=== PATIENT | male | born 1990 | race Caucasian/White ===

== ENCOUNTER 2018-07-07 12:27 | Observation (INO) | payer OTHER, SELFPAY ==
[2018-07-07 12:28] VITALS: BP 134/86; PULSE 84; RESP 17; TEMP 36.5; O2SAT 99; BMI 33.9
[2018-07-07] MEDS: Ketorolac 15 MG/ML Vial IV (13:17)
[2018-07-07] MEDS: Ondansetron 4 MG/2 ML Vial IV (13:17)
[2018-07-07] MEDS: Morphine 4 MG/ML Syringe IV (13:17)
--- NOTE | 2018-07-07 13:43 | MRI_ITS ---
STUDY: MRI LUMBAR SPINE WITH AND WITHOUT CONTRAST REASON FOR EXAM: Male, 28 years old. Low back pain.? Abscess/discitis. TECHNIQUE: Standardized fat and water weighted pulse sequences were obtained in the sagittal and axial planes. 20 IV Dotarem was administered for the contrast portion of the examination. COMPARISON: None FINDINGS: T10-T11: (Sagittal only). Normal endplates. Normal disc height, hydration and morphology. No ventral extradural defect. Normal central canal and the visualized portions of the bilateral intervertebral neural foramina. T11-T12: (Sagittal only). Normal endplates. Normal disc height, hydration and morphology. No ventral extradural defect. Normal central canal and bilateral intervertebral neural foramina. T12-L1: (Sagittal only). Normal endplates. Normal disc height, hydration and morphology. No ventral extradural defect. Normal central canal and bilateral intervertebral neural foramina. Normal lumbar lordosis. There is no substantial scoliosis. Normal conus medullaris that terminates at the lower T12 vertebral body level. L1-2: Normal endplates. Normal disc height, hydration and morphology. Normal bilateral facet joints. Normal central canal and bilateral lateral recesses. Normal bilateral intervertebral neural foramina. L2-3: Normal endplates. Normal disc height, hydration and morphology. Mild central canal stenosis secondary to prominent dorsal epidural lipomatosis. The AP canal diameter is 11 mm but the transverse canal diameter is 18.4 mm wide. Normal bilateral lateral recesses. Normal facet joints. Normal bilateral intervertebral neural foramina. L3-4: Normal endplates. Mild disc space height narrowing with moderate loss of disc hydration. Prominent posterior midline disc protrusion. Moderately pronounced central canal stenosis with an AP canal diameter of 6.4 mm. Mild dorsal epidural lipomatosis. Normal bilateral lateral recesses. Normal facet joints. Normal bilateral intervertebral neural foramina. L4-5: Normal endplates. Normal disc height, hydration and morphology. No ventral epidural defect. Mild central canal stenosis with an AP canal diameter of 10 mm. Normal bilateral lateral recesses. Normal facet joints. Normal bilateral intervertebral neural foramina. L5-S1: Normal endplates. Normal disc height, hydration and morphology. Moderate central canal stenosis with an AP canal diameter of 6.4 mm. This is due to developmentally short pedicles and tapering termination of the thecal sac. Normal bilateral lateral recesses. Normal facet joints. Normal bilateral intervertebral neural foramina. Normal visualized sacral ala. Normal visualized paraspinous soft tissue structures. No abnormal enhancing lesions intradurally and extradurally. MRI/Spine Lumbar W/WO Contrast IMPRESSION: 1. No MRI evidence of discitis or abscess in the lumbar spine. 2. No MRI evidence of lumbar extruded disc fragment. 3. Moderately pronounced central canal stenosis at L3-L4 disc level secondary to prominent posterior midline disc protrusion, developmentally short pedicles and dorsal epidural lipomatosis. 4. Mild central canal stenosis at L4-L5 disc level with an AP canal diameter of 10 mm. 5. No enhancing lesions intradurally and extradurally. Electronically Signed: Kian Yu MD at 15:56 EDT , Service support ,
[2018-07-07] MEDS: HYDROmorphone 1 MG/ML Syringe IV (14:04)
[2018-07-07 14:08] LABS: Absolute Lymphocyte Count 1.58 X10^3/ul (0.83-4.51); Absolute Neutrophil Count 4.3 X10^3/uL (2.0-7.7); Basophil# 0.03 X10^3/uL; Basophil% 0.5 % (0-1); Eosinophil# 0.07 X10^3/uL; Eosinophils% 1.1 % (0-5); Hematocrit 43.2 % (40-54); Hemoglobin 14.7 g/dl (13.0-16.5); Lymphocyte # 1.58 X10^3/ul (4.0); Lymphocyte % 25.3 % (19-41); Mean Corpuscular Hgb 30.2 pg (27.0-32.0); Mean Corpuscular Volume 88.9 fL (80-94); Mean Platelet Vol. 10.4 fl (6.2-12.0); Monocyte# 0.29 X10^3/uL; Monocyte% 4.6 % (0-10); Neutrophil # 4.27 X10^3/uL (2.7-7.7); Neutrophil % 68.3 % (47-70); Platelet Count 233 K/mm3 (150-450); RBC Distribution Width CV 12.7 % (11.6-14.6); RBC Distribution Width SD 41.4 fl (35.1-43.9); Red Blood Count 4.86 M/mm3 (4.6-6.2); White Blood Count 6.3 K/mm3 (4.4-11.0)
[2018-07-07 14:09] LABS: POSITIVE COUNT NO; POSITIVE DIFFERENTIAL NO; POSITIVE MORPHOLOGY NO
[2018-07-07 14:17] LABS: Anion Gap 4 (5-15); BUN 18 mg/dL (7-18); BUN/Creat Ratio 16.5 RATIO (10-20); Calcium,Total 8.6 mg/dL (8.5-10.1); Chloride 107 mmol/L (98-107); Creatinine, Serum 1.09 mg/dL (0.70-1.30); EST Glomerular Filtration Rate 86 mL/min (>60); Est Glom Filt Rate - Afr Amer 104 mL/min (>60); Estimated Creatinine Clearance 91.86 ml/min; Glucose 90 mg/dL (74-106); Potassium 4.5 mmol/L (3.5-5.1); Sodium Level 138 mmol/L (136-145)
--- NOTE | 2018-07-07 15:27 | ED.DCSUM_ITS ---
History of Present Illness Chief Complaint: Back Onset: Days - Acute onset Monday Context: Sudden Onset Timing: Continuous Quality: Aching Location: Lumbar Current Severity: Moderate Maximum Severity: Severe Worsened by: improves with: Movement, Bending, - - Patient has been bedridden since Monday Relieved by: Nothing Associated Symptoms: - - Patient reports no radicular pain. He denies bowel bladder dysfunction. He denies saddle paresthesia or anesthesia. He states he is not able to sit up or stand up because the pain is severe. He feels his spine is smashing his back. Narrative: Patient is a healthy 28-year-old male who admits to drinking occasionally. He denies drug use. He had a recent respiratory infection. He presents with atraumatic acute lumbar pain localized over the L3-4 region. He denies radicular pain. Denies bowel bladder dysfunction. I saddle paresthesia or anesthesia. He has been read bedridden since Monday. He denies night sweats. He denies weight loss or weight gain. Prior similar symptoms: No Recent Illness/Hospitalization: No Past Medical History - Allergies and Home Meds Allergies/Adverse Reactions: Allergies No Known Allergies Allergy (Verified 07/07/18 12:28) Primary Care Physician: Radha Moran MD [Primary Care Provider] - Prior records reviewed: No Past Medical History: None Surgical History: no surgical history Lives: Alone Smoking Status: Never smoker Alcohol: Occasional Drugs: None Review of Systems General: Denies: Chills, Fever, Sweats Eyes: Denies: Visual changes - bilaterally, Blurred Vision - bilaterally, Diplopia ENT: Denies: Rhinorrhea, Sore throat Cardiovascular: Denies: Chest pain, Palpitations Respiratory: Denies: Dyspnea, Cough, Dyspnea on exertion Gastrointestinal: Denies: Abdominal pain, Nausea, Vomiting, Diarrhea, Melena, Hematochezia Genitourinary: Denies: Dysuria, Hematuria, Frequency Musculoskeletal: Reports: Back pain. Denies: Myalgias, Arthralgias, Neck pain, Swelling, Extremity Pain Skin: Denies: Rash, Wounds Neurological: Denies: Headache, Weakness, Numbness Hematologic: Denies: Easy bruising, Easy bleeding Allergy: Denies: Uticaria, Swelling of the mouth, Swelling of the tongue Physical Exam Vital Signs/Narrative: Vital Signs Temp Pulse Resp BP Pulse Ox 07/07/18 12:28 97.7 F L 84 17 134/86 H 99 Inital Vital Signs reviewed: Yes General: Well nourished, Well developed Head: Normocephalic, Atraumatic Eyes: Perrl, EOMI. Negative for: Pale conjunctiva, Scleral icterus, - ENT: Moist mucous membranes - Full range of motion is no pain, No rhinorrhea Neck: Supple, Nontender, No lymphadenopathy, No JVD, - Cardiovascular: Regular rate, Regular rhythm, No murmurs, Normal S1, Normal S2 Respiratory: No distress, CTA bilaterally, Chest nontender Abdomen: Soft, Nontender, Nondistended, Normal bowel sounds, No masses Rectal: - - He reports normal perianal sensation Back: Normal Inspection, Spinal tenderness - Tenderness to percussion L2-3-4 region., Negative SLR - Right, Negative SLR - Left. Negative for: Surgical Scar, Well-Healed Extremeties: Nontender, No edema, Strong Pulses, Symmetric Skin: Normal color, No rash, No Trauma. Negative for: Cyanosis, Jaundice Neuro: Alert, Oriented, Normal Strength, Normal Sensation, Normal DTR, Normal Gait, Normal Reflexes - Reflexes are 2+ patella and ankle and symmetric., - - Even after patient was medicated he was unable to stand. Reflexes: Right Patellar, Right Achilles, Left Patellar, Left Achilles. Negative for: Right Clonus, Right Babinski, Left Clonus, Left Babinski Psychological: Normal affect, Normal Mood Diagnostic/Tx/Re-eval Impressions Lumbar Spine MRI 07/07/18 13:43 IMPRESSION: 1. No MRI evidence of discitis or abscess in the lumbar spine. 2. No MRI evidence of lumbar extruded disc fragment. 3. Moderately pronounced central canal stenosis at L3-L4 disc level secondary to prominent posterior midline disc protrusion, developmentally short pedicles and dorsal epidural lipomatosis. 4. Mild central canal stenosis at L4-L5 disc level with an AP canal diameter of 10 mm. 5. No enhancing lesions intradurally and extradurally. Electronically Signed: Kian Yu MD at 15:56 EDT , Service support , 07/07/18 13:43 MRI Lumbar [Spine Lumbar W/WO Contrast] [MRI] Stat Laboratory Results 07/07/18 07/07/18 14:00 14:00 WBC 6.3 RBC 4.86 Hgb 14.7 Hct 43.2 MCV 88.9 MCH 30.2 MCHC 34.0 RDW 12.7 RDW Differential 41.4 Plt Count 233 MPV 10.4 Immature Gran % (Auto) 0.200 Neut % (Auto) 68.3 Lymph % (Auto) 25.3 [place] % (Auto) 4.6 Eos % (Auto) 1.1 Baso % (Auto) 0.5 Absolute Neuts (auto) 4.3 Absolute Lymphs (auto) 1.58 Total Counted Not Reportable Sodium 138 Potassium 4.5 Chloride 107 Carbon Dioxide 27.0 Anion Gap 4 L BUN 18 Creatinine 1.09 Estim Creat Clear Calc 91.86 Est GFR (MDRD) Af Amer 104 Est GFR (MDRD) Non-Af 86 BUN/Creatinine Ratio 16.5 Glucose 90 Calcium 8.6 - Medical Decision Making IV was established. He was medicated with IV morphine and Toradol initially. He received IV Dilaudid.Exam is limited because patient is unable to get out of bed. With significant assistance he was able to stand for 5-10 seconds. Since he has point tenderness over the lower lumbar region and recent respiratory infection concern for discitis, osteomyelitis or epidural abscess. His pain is not consistent with a herniated disc. Therefore, MRI was ordered without and with contrast. Patient was reassessed after return for MRI. MRI reveals a central protrusion L3 3 4 with narrowing of the canal. There is also stenosis below. Patient was reexamined. He is unable to take a step. He is still in significant discomfort. He has a negative femoral stretch tests right and left. His reflexes remain unchanged. He has no neurologic deficit. Hospitalist was called for management of back pain. He does not require emergent consultation with spine surgeon since there is no neurologic deficit. ED Disposition - Plan for ED Patient: Disposition: Acute Care Hospital [facility] Diagnosis: L3-4 herniated disc, Lumbar canal stenosis Referrals: Radha Moran MD [Primary Care Provider] -
[2018-07-07 17:05] VITALS: BP 106/75; PULSE 59; RESP 17; O2SAT 99
[2018-07-07 19:42] VITALS: BMI 30.1
[2018-07-07 19:47] VITALS: BMI 30.1
[2018-07-07 19:57] VITALS: BP 111/82; PULSE 57; RESP 14; TEMP 36.4; O2SAT 100
--- NOTE | 2018-07-07 20:45 | NURSING ---
Lab called to see if it was ok to add on CPK to [address] Raza indicated it was ok and this message was conveyed to lab.
--- NOTE | 2018-07-07 20:51 | PCM.HP.STD ---
Problem List (1) Acute back pain Status: Acute (2) Lumbar canal stenosis Status: Chronic History of Present Illness Date of Admission: 07/07/18 Chief Complaint: Acute back pain for 4 days The patient is a 28 year old M with no significant past medical history except chronic lingering back pain for more than a year came to ED with severe back pain, not able to move or stand up therefore bedridden since past 4 days. The pain is localized in lower back between L2-L5 lumbar spine, without radiation, paresthesia or weakness. Denies lower extremity weakness. Patient denies saddle paresthesia or urinary incontinence or fecal incontinence. He feels like a ball is smacking his lower back. Patient had never MRI of lower back although had been chronic lingering back pain for last 1 year but it has never been debilitating to this extent. In ED, basic blood work is within normal limit. Lumbar spine MRI shows moderately pronounced central canal stenosis at L3-L4 disc level secondary to prominent posterior midline disc protrusion, developmentally short pedicles and dorsal epidural lipomatosis. Mild central canal stenosis at L4-5 level. Past Medical History Past Medical History (Chronic Problems): Chronic Problems Lumbar canal stenosis (Chronic) Allergies No Known Allergies Allergy (Verified 07/07/18 19:54) Home Medications: Ambulatory Orders Medication Instructions Recorded NK 07/07/18 Surgical History: no surgical history Lives: Alone Smoking Status: Never smoker Alcohol: Occasional Drugs: None - *Family History Paternal History Items: No pertinent history - No pertinent history of spina bifid, developmental meningocele or myelomeningocele, - Review of Systems Constitutional: Denies: Chills, Fever, Weight Change HEENT: Denies: Head Aches, Sinus Congestion, Sinus Drainage Cardiovascular: Denies: Chest Pain, Palpitations Respiratory: Denies: Cough, Shortness of breath at rest, Sputum production Gastrointestinal: Denies: Abdominal Pain, Nausea, Vomiting Genitourinary: Denies: Dysuria Musculoskeletal: Reports: Back Pain, Joint Pain, Joint stiffness. Denies: Joint Tenderness Skin: Denies: Rash, Wounds Neurological: Reports: - - Could not sit up or stand up. Denies: Focal weakness, Numbness, Tingling Psychiatric: Denies: Anxiety, Depression, Homicidal Ideations, Suicidal Ideations Hematologic/ Lymphatic: Denies: Easy Bruising, Easy Bleeding VTE Information - Inpt Only VTE Present on Admission: No VTE Mechan Device Prophylaxis: SCD's VTE Pharm Prophylaxis ordered?: No Patient Problems: Active and Suspected Problems Acute back pain (Acute) - Physical Exam General: Alert, Oriented x3, Cooperative HEENT: Atraumatic, PERRLA, EOMI, Normocephalic Neck: Supple, No JVD, Negative Carotid Bruits Lungs: Clear to auscultation, Normal air movement Cardiovascular: Regular rate, Regular Rhythm, Normal S1, Normal S2, No murmurs Abdomen: Bowel Sounds Present, Soft, Non Tender, Non-Distended Extremities: No edema, Capillary Refill Less than 3 Seconds Skin: No rashes, No breakdown Musculoskeletal: Tenderness - Tenderness at lumbar spin spine level between L2-L5 Lymphatic: No Cervical, Supraclavicular, or Inguinal Adenopathy Neurological: Cranial nerves II-XII grossly intact, Deep Tendon Reflexes 2+/4 and Symmetrical, Neuro grossly intact, Motor Exam 5/5 strength throughout, - - Babinski sign is negative. Sensation on both lower extremities are equal and symmetrical. No saddle anesthesia. Psych/Mental Status: Normal Affect, Appropriate Vital Signs Temp Pulse Resp BP Pulse Ox 97.5 F L 57 L 14 111/82 H 100 07/07/18 19:57 07/07/18 19:57 07/07/18 19:57 07/07/18 19:57 07/07/18 19:57 Oxygen Delivery Method Room Air Weight: 209 lb 14.081 oz Body Mass Index (BMI) 30.1 Laboratory Tests Past 24 Hrs 07/07/18 07/07/18 07/07/18 14:00 14:00 14:00 WBC 6.3 RBC 4.86 Hgb 14.7 Hct 43.2 MCV 88.9 MCH 30.2 MCHC 34.0 RDW 12.7 RDW Differential 41.4 Plt Count 233 MPV 10.4 Immature Gran % (Auto) 0.200 Neut % (Auto) 68.3 Lymph % (Auto) 25.3 [place] % (Auto) 4.6 Eos % (Auto) 1.1 Baso % (Auto) 0.5 Absolute Neuts (auto) 4.3 Absolute Lymphs (auto) 1.58 Total Counted Not Reportable Sodium 138 Potassium 4.5 Chloride 107 Carbon Dioxide 27.0 Anion Gap 4 L BUN 18 Creatinine 1.09 Estim Creat Clear Calc 91.86 Est GFR (MDRD) Af Amer 104 Est GFR (MDRD) Non-Af 86 BUN/Creatinine Ratio 16.5 Glucose 90 Calcium 8.6 Total Creatine Kinase Pending Assessment/Plan All Active Problems Acute back pain (Acute) The patient is a 28 year old M with no significant past medical history except chronic lingering back pain for more than a year came to ED with severe back pain, not able to move or stand up therefore bedridden since past 4 days. The pain is localized in lower back between L2-L5 lumbar spine, without radiation, paresthesia or weakness. Denies lower extremity weakness. Patient denies saddle paresthesia or urinary incontinence or fecal incontinence. He feels like a ball is smacking his lower back. Patient had never MRI of lower back although had been chronic lingering back pain for last 1 year but it has never been debilitating to this extent. In ED, basic blood work is within normal limit. Lumbar spine MRI shows moderately pronounced central canal stenosis at L3-L4 disc level secondary to prominent posterior midline disc protrusion, developmentally short pedicles and dorsal epidural lipomatosis. Mild central canal stenosis at L4-5 level. 1. Acute severe on chronic lumbar spinal pain, localized: Patient had Toradol, morphine, Decadron 10 mg IV 1 dose in ED. Patient is being admitted on [facility] floor. On pain medication, Tylenol, oxycodone and morphine as needed along with muscle relaxant. PT and OT ordered. Discussed MRI findings with the neurologist, Dr. Vasques and he felt he needs to see orthospine as an outpatient. No acute neurological compromise. CK is ordered. 2. Chronic lumbar canal stenosis with prominent midline disc protrusion: MRI findings as mentioned below. This seems chronic. Patient needs to follow orthospine surgeon as an outpatient in 2-3 weeks. DVT prophylaxis: Low risk. Bilateral SCDs ordered while he is on the bed Clinical Impression(s) from Imaging Studies Lumbar Spine MRI 07/07/18 13:43 IMPRESSION: 1. No MRI evidence of discitis or abscess in the lumbar spine. 2. No MRI evidence of lumbar extruded disc fragment. 3. Moderately pronounced central canal stenosis at L3-L4 disc level secondary to prominent posterior midline disc protrusion, developmentally short pedicles and dorsal epidural lipomatosis. 4. Mild central canal stenosis at L4-L5 disc level with an AP canal diameter of 10 mm. 5. No enhancing lesions intradurally and extradurally. Code Visit OBSV E&M: 43239 Initial observation care L3
[2018-07-07 21:06] LABS: CPK Total, Creatine Kinase 97 U/L (39-308)
[2018-07-07] MEDS: oxyCODONE 5 MG Tablet PO (21:33)
[2018-07-07] MEDS: 0.9% Normal Saline 1,000 ML 100 ML IV (21:34)
[2018-07-07] MEDS: 0.9% NaCl Peripheral Flush Adult/Peds IV (21:35)
[2018-07-08 02:05] VITALS: BP 109/68; PULSE 84; RESP 14; TEMP 36.6; O2SAT 97
[2018-07-08] MEDS: 0.9% Normal Saline 1,000 ML 100 ML IV (07:33)
[2018-07-08 07:35] VITALS: BP 109/66; PULSE 54; RESP 18; TEMP 36.6; O2SAT 98
--- NOTE | 2018-07-08 07:37 | PCM.PROGNOTE ---
Patient Problems: Active and Suspected Problems Acute back pain (Acute) Subjective: The patient is a 28-year-old male with chronic back pain times 1 year who presented to the emergency department at [facility] on 07/07/2018 complaining of intractable back pain for the preceding 4 days. He denied radiation of the pain, paresthesias or weakness. He had no urinary or fecal incontinence. MRI in the emergency department showed at L3-4 a posterior midline disc protrusion causing moderately pronounced central canal stenosis with normal bilateral lateral recesses. There was also mild central canal stenosis at L4-5 with normal foramina. There was also moderate canal stenosis at L5-S1 with normal facet joints, normal lateral recesses and normal bilateral neuroforamina. There was no evidence in the LS-spine of discitis, abscess or fracture. Lab was unremarkable. He received 1 dose of dexamethasone in the emergency department. He was admitted to the hospital and was placed on Flexeril 10 mg 3 times daily and pain medication. PT and OT were ordered. I saw him in the afternoon and he was started on Prednisone and a NSAID in the morning. By the afternoon he was able to ambulate to the BR which he was unable to do in the morning. 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 Prior to that he had back pain for about a year and just tolerated it. He sometimes took Motrin for the pain but, he was not on a regular regimen. He has not had PT for back pain. - Physical Exam General: Alert, Oriented x3, Cooperative Oral: Moist Mucosa Neck: Supple, No Nuchal Rigidity Lungs: Clear to auscultation, Normal air movement Cardiovascular: Regular rate, Regular Rhythm Abdomen: Bowel Sounds Present, Soft, Non Tender, Non-Distended Extremities: No edema, No Calf Tenderness Skin: No rashes Musculoskeletal: No Muscle Wasting, - - negative SLR. He has local tenderness in the paravertebral muscles in the lumbar region and muscle spasm. No fecal or urine incontinence and no paresthesias. Vital Signs Temp Pulse Resp BP Pulse Ox 97.8 F 84 14 109/68 97 07/08/18 02:05 07/08/18 02:05 07/08/18 02:05 07/08/18 02:05 07/08/18 02:05 Oxygen Delivery Method Room Air Weight: 209 lb 14.081 oz Body Mass Index (BMI) 30.1 Intake and Output for Last 24 Hours 07/06/18 07/07/18 07/08/18 23:59 23:59 23:59 Intake Total 1138 / 1138 Output Total 750 / 750 Balance 388 / 388 Laboratory Tests Past 24 Hrs 07/07/18 07/07/18 07/07/18 14:00 14:00 14:00 WBC 6.3 RBC 4.86 Hgb 14.7 Hct 43.2 MCV 88.9 MCH 30.2 MCHC 34.0 RDW 12.7 RDW Differential 41.4 Plt Count 233 MPV 10.4 Immature Gran % (Auto) 0.200 Neut % (Auto) 68.3 Lymph % (Auto) 25.3 [place] % (Auto) 4.6 Eos % (Auto) 1.1 Baso % (Auto) 0.5 Absolute Neuts (auto) 4.3 Absolute Lymphs (auto) 1.58 Total Counted Not Reportable Sodium 138 Potassium 4.5 Chloride 107 Carbon Dioxide 27.0 Anion Gap 4 L BUN 18 Creatinine 1.09 Estim Creat Clear Calc 91.86 Est GFR (MDRD) Af Amer 104 Est GFR (MDRD) Non-Af 86 BUN/Creatinine Ratio 16.5 Glucose 90 Calcium 8.6 Total Creatine Kinase 97 Medical Necessity - Tobacco Use Smoking Status: Never smoker Assessment/Plan All Active Problems Acute back pain (Acute) Impressions 1. intractable back pain 2. Moderately pronounced central canal stenosis at L3-L4 secondary to prominent posterior midline disc protrusion, developmentally short pedicles and dorsal epidural lipomatosis. 3. Mild central canal stenosis at L4-L5 with an AP canal diameter of 10 mm. Motrin 600 mg p.o. every 8 hours Prednisone 60 mg p.o. daily Continue Flexeril If he is feeling better with the steroids in the AM will consult Dr. Dalal for epidural He will need PT as an OP for a back program No work for one week and follow up with his PCP at the end of the week Code Visit OBSV E&M: 31128 Subsequent observation care L2
[2018-07-08] MEDS: oxyCODONE 5 MG Tablet PO ×3 (07:40→18:09)
--- NOTE | 2018-07-08 07:44 | PN_ITS ---
Patient Problems: Active and Suspected Problems Acute back pain (Acute) Subjective: The patient is a 28-year-old male with chronic back pain times 1 year who presented to the emergency department at [facility] on 07/07/2018 complaining of intractable back pain for the preceding 4 days. He denied radiation of the pain, paresthesias or weakness. He had no urinary or fecal incontinence. MRI in the emergency department showed at L3-4 a posterior midline disc protrusion causing moderately pronounced central canal stenosis with normal bilateral lateral recesses. There was also mild central canal stenosis at L4-5 with normal foramina. There was also moderate canal stenosis at L5-S1 with normal facet joints, normal lateral recesses and normal bilateral neuroforamina. There was no evidence in the LS-spine of discitis, abscess or fracture. Lab was unremarkable. He received 1 dose of dexamethasone in the e mergency department. He was admitted to the hospital and was placed on Flexeril 10 mg 3 times daily and pain medication. PT and OT were ordered. I saw him in the afternoon and he was started on Prednisone and a NSAID in the morning. By the afternoon he was able to ambulate to the BR which he was unable to do in the morning. 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 Prior to that he had back pain for about a year and just tolerated it. He sometimes took Motrin for the pain but, he was not on a regular regimen. He has not had PT for back pain. - Physical Exam General: Alert, Oriented x3, Cooperative Oral: Moist Mucosa Neck: Supple, No Nuchal Rigidity Lungs: Clear to auscultation, Normal air movement Cardiovascular: Regular rate, Regular Rhythm Abdomen: Bowel Sounds Present, Soft, Non Tender, Non-Distended Extremities: No edema, No Calf Tenderness Skin: No rashes Musculoskeletal: No Muscle Wasting, - - negative SLR. He has local tenderness in the paravertebral muscles in the lumbar region and muscle spasm. No fecal or urine incontinence and no paresthesias. Vital Signs Temp Pulse Resp BP Pulse Ox 97.8 F 84 14 109/68 97 07/08/18 02:05 07/08/18 02:05 07/08/18 02:05 07/08/18 02:05 07/08/18 02:05 Oxygen Delivery Method Room Air Weight: 209 lb 14.081 oz Body Mass Index (BMI) 30.1 Intake and Output for Last 24 Hours 07/06/18 07/07/18 07/08/18 23:59 23:59 23:59 Intake Total 1138 / 1138 Output Total 750 / 750 Balance 388 / 388 Laboratory Tests Past 24 Hrs 07/07/18 07/07/18 07/07/18 14:00 14:00 14:00 WBC 6.3 RBC 4.86 Hgb 14.7 Hct 43.2 MCV 88.9 MCH 30.2 MCHC 34.0 RDW 12.7 RDW Differential 41.4 Plt Count 233 MPV 10.4 Immature Gran % (Auto) 0.200 Neut % (Auto) 68.3 Lymph % (Auto) 25.3 [place] % (Auto) 4.6 Eos % (Auto) 1.1 Baso % (Auto) 0.5 Absolute Neuts (auto) 4.3 Absolute Lymphs (auto) 1.58 Total Counted Not Reportable Sodium 138 Potassium 4.5 Chloride 107 Carbon Dioxide 27.0 Anion Gap 4 L BUN 18 Creatinine 1.09 Estim Creat Clear Calc 91.86 Est GFR (MDRD) Af Amer 104 Est GFR (MDRD) Non-Af 86 BUN/Creatinine Ratio 16.5 Glucose 90 Calcium 8.6 Total Creatine Kinase 97 Medical Necessity - Tobacco Use Smoking Status: Never smoker Assessment/Plan All Active Problems Acute back pain (Acute) Impressions 1. intractable back pain 2. Moderately pronounced central canal stenosis at L3-L4 secondary to prominent posterior midline disc protrusion, developmentally short pedicles and dorsal epidural lipomatosis. 3. Mild central canal stenosis at L4-L5 with an AP canal diameter of 10 mm. Motrin 600 mg p.o. every 8 hours Prednisone 60 mg p.o. daily Continue Flexeril If he is feeling better with the steroids in the AM will consult Dr. Dalal for epidural He will need PT as an OP for a back program No work for one week and follow up with his PCP at the end of the week Code Visit OBSV E&M: 94127 Subsequent observation care L2
[2018-07-08] MEDS: predniSONE 20 MG Tablet 60 MG PO (08:58)
[2018-07-08] MEDS: Ibuprofen 600 MG Tablet PO ×3 (08:58→22:12)
[2018-07-08 13:40] VITALS: BP 118/66; PULSE 71; RESP 18; TEMP 36.9; O2SAT 96
--- NOTE | 2018-07-08 18:35 | NURSING ---
PT STATES NO BM X4 DAYS. DR ANAND NOTIFIED REGARDING SAME.
[2018-07-08 22:08] VITALS: BP 125/78; PULSE 61; RESP 14; TEMP 36.4; O2SAT 97
[2018-07-09] VITALS (7 sets, daily range): BP systolic 104–121; BP diastolic 66–81; PULSE 52–69; RESP 14–16; TEMP 36.3–36.4; O2SAT 97–98
[2018-07-09] MEDS: 0.9% NaCl Peripheral Flush Adult/Peds IV (05:01)
[2018-07-09] MEDS: Ibuprofen 600 MG Tablet PO (05:02)
--- NOTE | 2018-07-09 10:28 | DCINST_ITS ---
- Discharge Diagnoses Current Active Problems: Current Active and Chronic Problems Lumbar canal stenosis (Chronic) Acute back pain (Acute) You will use the following diet at home:: No restrictions Your food should be the consistency of: Regular Your liquids should be the consistency of: Regular/Thin Discharge Activity: May not drive while taking narcotic pain medications., - - I would stay out of the car as much as possible for the next week because it will exacerbate your back pain. Do not sit for longer than 1 hour without getting up and moving. Avoid bending, lifting and twisting. A TENS unit(trancutaneous nerve stimulator) can really help with back pain. They are fairly inexpensive now and can be purchased at a drug store or on [employer]. Lifting Restrictions: 10 lbs Call your doctor if you observe: Fever of 101 or Higher, Inability to have a bowel movement, - - Pain radiating into the legs, weakness in the legs, loss of bowel or bladder control. Additional Instructions: 1. You are a young man. Be kind to your back and you may be able to avoid having surgery. Surgery is a last resort. Things to worry about: pain in the legs or numbness, weakness in the legs, loss of bowel or bladder control. 2. Dr. Dalal wants to see you in the office in 2 weeks. Pending Tests on Discharge: none Allergies/Adverse Reactions: Allergies No Known Allergies Allergy (Verified 07/07/18 19:54) Medications to take at Discharge Cyclobenzaprine [Flexeril] 10 mg PO TID #60 tab 07/09/18 Ibuprofen [Motrin] 600 mg PO Q8 #60 tab 07/09/18 Oxycodone HCl/Acetaminophen [Percocet 5/325] 1 tab PO Q6H PRN PRN 7 Days #30 tab 07/09/18 predniSONE tablet 60 mg PO DAILY@0800 #9 tab 07/09/18 The following prescriptions were given: Oxycodone HCl/Acetaminophen [Percocet 5/325] 1 tab PO Q6H PRN PRN 7 Days #30 tab PRN Reason: moderate to severe pain Ibuprofen [Motrin] 600 mg PO Q8 #60 tab predniSONE tablet 60 mg PO DAILY@0800 #9 tab Cyclobenzaprine [Flexeril] 10 mg PO TID #60 tab Primary Care Physician: Radha Moran MD [Primary Care Provider] - Please follow up with your Primary Care Physician in: the end of the week Test Results: Test results from this visit will be discussed in further detail at your follow- up appointment, if applicable. Please Follow Up With: Sharmin Dalal MD When: 2 weeks Proposed Discharge Date: 07/09/18
[2018-07-09] MEDS: Triamcinolone Acetonide 40 MG/ML Vial (15:42)
--- NOTE | 2018-07-09 15:43 | RAD_ITS ---
STUDY: X-RAY - LUMBAR SPINE REASON FOR EXAM: Male, 28 years old. Lumbar epidural block at L3-4. TECHNIQUE: A single interoperative view(s) of the lumbar spine were obtained. 2.7 seconds of fluoroscopy time were used. 8.3 mGy. COMPARISON: MRI of the lumbar spine, July 07, 2018. FINDINGS: The provided image demonstrates a needle posterior to what appears to be the L5 spinous process. Contrast is seen surrounding the medial and region of the spinous processes. Please refer to the operative report for further details. RAD/Spine 1 View Any Level IMPRESSION: Lumbar epidural block L4-5 in the OR. Electronically Signed: Ron Jerez DO at 16:16 EDT Tel [phone], Service support ,
--- NOTE | 2018-07-09 18:08 | DS.PCM_ITS ---
Discharge Date and Diagnosis - Problem List Patient Problems: Active and Suspected Problems S/P epidural steroid injection (Acute) Intractable back pain (Acute) Lumbar disc herniation (Acute) Date of Admission: 07/07/18 Date of Discharge: 07/09/18 - Primary Discharge Diagnosis Active and Suspected Problems Intractable back pain (Acute) Lumbar disc herniation (Acute) Moderate lumbar canal stenosis secondary to herniated disc at L3-L4 S/P epidural steroid injection (Acute) - Secondary Discharge Diagnosis Chronic Problems Chronic back pain greater than 3 months duration (Chronic) Lumbar canal stenosis (Chronic) Hospital Course and Treatment Imaging Results: 07/09/18 15:32 OR-[place]/Epid Inj/Lum Sac/1st [RAD] Urgent 07/09/18 15:43 Spine 1 View Any Level [RAD] Urgent Dr. Sharmin Dalal-pain management Operations: None Procedures: - - Lumbar epidural at L4-[address] Dalal on 07/09/2018 Summary of Care Provided: The patient is a 28-year-old male with chronic back pain times 1 year who presented to the emergency department at [facility] on 07/07/2018 complaining of intractable back pain for the preceding 4 days. He denied radiation of the pain, paresthesias or weakness. He had no urinary or fecal incontinence. MRI in the emergency department showed at L3-4 a posterior midline disc protrusion causing moderately pronounced central canal stenosis with normal bilateral lateral recesses. There was also mild central canal stenosis at L4-5 with normal foramina and moderate canal stenosis at L5-S1 with normal facet joints, normal lateral recesses and normal bilateral neuroforamina. There was no evidence in the LS-spine of discitis, abscess or fracture. Lab was unremarkable. He received 1 dose of dexamethasone in the emergency department. He was admitted to the hospital and was placed on Flexeril 10 mg 3 times daily and pain medication. PT and OT were ordered. He was started on Prednisone 60 mg daily and Motrin TID. He felt better after 2 doses of Prednisone and was able to get out of bed and ambulate to the BR. Dr. Dalal was consulted on 07/09/18 and took the pt to the OR for an epidural injection at L4-5. He tolerated the procedure well and was discharged home with RX's for 2 additional days of Prednisone 60 mg, Flexeril and Percocet #30. He was given a referral for PT/aquatherapy. He was given a work excuse to be off work through 07/15. He will follow-up with Dr. Moran in the office at the end of the week and with Dr. Dr. Dalal in his office in 2 weeks. - Physical Exam General: Alert, Oriented x3, Cooperative Oral: Moist Mucosa Neck: Supple, No Nuchal Rigidity Lungs: Clear to auscultation, Normal air movement Cardiovascular: Regular rate, Regular Rhythm Abdomen: Bowel Sounds Present, Soft, Non Tender, Non-Distended Extremities: No edema, No Calf Tenderness Skin: No rashes Musculoskeletal: No Muscle Wasting, - - negative SLR. He has local tenderness in the paravertebral muscles in the lumbar region and muscle spasm. No fecal or urine incontinence and no paresthesias. 5/5 strength in both lower extremities. Intact sensation. Patient Problems: Active and Suspected Problems S/P epidural steroid injection (Acute) Intractable back pain (Acute) Lumbar disc herniation (Acute) - Physical Exam Vital Signs Temp Pulse Resp BP Pulse Ox 97.5 F L 61 16 121/75 H 98 07/09/18 16:22 07/09/18 16:22 07/09/18 16:22 07/09/18 16:22 07/09/18 16:22 Oxygen Delivery Method Room Air Weight: 209 lb 14.081 oz Body Mass Index (BMI) 30.1 Intake and Output for Last 24 Hours 07/07/18 07/08/18 07/09/18 23:59 23:59 23:59 Intake Total 2753 / 2753 2260 / 2260 Output Total 750 / 750 Balance 2002 2260 / 2260 Discharge Activity: May not drive while taking narcotic pain medications., - - I would stay out of the car as much as possible for the next week because it will exacerbate your back pain. Do not sit for longer than 1 hour without getting up and moving. Avoid bending, lifting and twisting. A TENS unit(trancutaneous nerve stimulator) can really help with back pain. They are fairly inexpensive now and can be purchased at a drug store or on [employer]. Call your doctor if you observe: Fever of 101 or Higher, Inability to have a bowel movement, - - Pain radiating into the legs, weakness in the legs, loss of bowel or bladder control. Home Medications: Medications to take at Discharge Cyclobenzaprine [Flexeril] 10 mg PO TID #60 tab 07/09/18 Ibuprofen [Motrin] 600 mg PO Q8 #60 tab 07/09/18 Oxycodone HCl/Acetaminophen [Percocet 5/325] 1 tab PO Q6H PRN PRN 7 Days #30 tab 07/09/18 predniSONE tablet 60 mg PO DAILY@0800 #9 tab 07/09/18 Following Prescrptions Were Given to Patient: Oxycodone HCl/Acetaminophen [Percocet 5/325] 1 tab PO Q6H PRN PRN 7 Days #30 tab PRN Reason: moderate to severe pain Ibuprofen [Motrin] 600 mg PO Q8 #60 tab predniSONE tablet 60 mg PO DAILY@0800 #9 tab Cyclobenzaprine [Flexeril] 10 mg PO TID #60 tab Other Amb Orders: Physical Therapy Evaluation Location: None Selected Primary Care Physician: Radha Moran MD [Primary Care Provider] - Please follow up with your Primary Care Physician in: the end of the week Please Follow Up With: Sharmin Dalal MD When: 2 weeks Minutes spent on discharge:: 30 Patient Condition:: Stable Medical Necessity - Tobacco Use Smoking Status: Never smoker Tobacco Use: Non-smoker Meaningful Use Info Meaningful Use Diagnoses (Choose all that apply): None applicable Code Visit OBSV E&M: 60625 Observation care discharge
--- NOTE | 2018-07-09 18:15 | PCM.WORK.EX ---
Work/School Excuse Work/School Excuse for:: Patient Please excuse this person from:: Work From: 07/06/18 through: 07/15/18
== END 2018-07-09 18:35 | disposition home or self-care (01) ==
LOC: ED 17:09 → MS3 20:18
PROVIDERS: Anesthesiology Pain Medicine; Admitting Provider Internal Medicine; Emergency Provider Emergency Medicine; Family Provider Family Medicine; PCP Family Medicine; Referring Provider Internal Medicine; Visit Provider Internal Medicine
PROC: 3E0S3BZ Introduction of Anesthetic Agent into Epidural Space, Percutaneous Approach (ICD-10-PCS; CPT 62322; principal; 2018-07-09 15:55)
DX: M51.26 Other intervertebral disc displacement, lumbar region (principal); M48.061 Spinal stenosis, lumbar region without neurogenic claudication
CPT/HCPCS: 01992; 62323; 64483; 72020; 72158; 80048; 82550; 85025; 96361; 96374; 96375; 97116; 97162; 97165; 99218; 99284; A9575; J7030; J7120; A4216; G0378; J2405

== ENCOUNTER → 2022-03-16 | Outpatient (CLI) | payer BC, SELFPAY ==
--- NOTE | 2022-03-16 17:15 | RAD_ITS ---
STUDY: X-RAY - LUMBAR SPINE REASON FOR EXAM: Male, 31 years old. RADICULOPATHY TECHNIQUE: 2 view(s) of the lumbar spine were obtained. COMPARISON: None FINDINGS: Normal lumbar lordosis. There is a minimal dextroscoliosis of the lumbar spine. There is a normal alignment of the vertebrae. Normal vertebral bodies and endplates. Mild degree of disc space narrowing at the L3-L4 and L4-L5 levels. The soft tissue structures are unremarkable. RAD/Lumbar Spine 2 or 3 Views IMPRESSION: Degenerative changes of the spine, as detailed above. Electronically Signed: Ayush Ch MD at 12:39 EST ,
== END | disposition home or self-care (01) ==
LOC: RAD 17:11
PROVIDERS: PCP Family Medicine; Referring Provider Anesthesiology Pain Medicine; Visit Provider Anesthesiology Pain Medicine
DX: M54.16 Radiculopathy, lumbar region (principal); M47.816 Spondylosis without myelopathy or radiculopathy, lumbar region
CPT/HCPCS: 72100

== ENCOUNTER 2022-08-28 10:27 | Observation (INO) | payer BC, SELFPAY ==
[2022-08-28] VITALS (7 sets, daily range): BP systolic 101–148; BP diastolic 63–81; PULSE 56–83; RESP 16–18; TEMP 36.6–36.8; O2SAT 94–98; BMI 33.0; BMI 31.9
--- NOTE | 2022-08-28 10:42 | CT_ITS ---
EXAM: CT LUMBAR SPINE WITHOUT INTRAVENOUS CONTRAST CLINICAL INDICATION: pain, history of herniated disk TECHNIQUE: Helically acquired images were obtained of the lumbar spine without intravenous contrast. 2D reformats were reviewed. This CT exam was performed using one or more of the following dose reduction techniques: automated exposure control, adjustment of the mA and/or kV according to patient size, and/or use of iterative reconstruction technique. COMPARISON: No relevant prior studies available. FINDINGS: VERTEBRAE: Normal. No fracture. No traumatic subluxation. No discrete lytic or blastic abnormality. Normal alignment. DISCS/SPINAL CANAL/NEURAL FORAMINA: Normal. Disc heights are preserved. No critical stenosis. VASCULATURE: Visualized abdominal aorta is not dilated. LYMPH NODES: Normal. No retroperitoneal adenopathy. CT/Spine Lumbar without Contrast IMPRESSION: Intact lumbar spine. Electronically Signed: Jj Pagan MD at 12:07 EDT ,
[2022-08-28] MEDS: Morphine 4 MG/ML Syringe IV (10:57)
[2022-08-28] MEDS: Ketorolac 30 MG/ML Syringe IV (10:58)
[2022-08-28] MEDS: Orphenadrine 60 MG/2 ML Ampul IM (10:58)
--- NOTE | 2022-08-28 11:49 | EDS_ITS ---
HPI History of Present Illness Chief Complaint: Back Narrative Narrative: 32-year-old male past medical history of chronic back pain and known herniated disc presents with increased back pain after attempting to play golf yesterday. He states that he is seen by pain management and had epidural injections the first being a few years ago when he was first diagnosed with herniated disc, then again last winter. He states he had been doing well until last winter. He attempted to play golf yesterday as he had gone golfing last summer without reported problems. He states he played 2 holes in the [place] and had to watch 3 holes because of the pain, then ended up going home. He laid on the couch all evening. He took leftover oxycodone that he had which took the edge off. He denies any fevers or chills. No loss of bowel or bladder. He does not radiate down his legs. He called EMS because of his intractable back pain. He states that he is also having back spasms. PFSH PFS Home Medications cyclobenzaprine 10 mg tablet 10 mg PO TID #60 tabs 07/09/18 [Rx Last Taken Unknown] ibuprofen 600 mg tablet 600 mg PO Q8 #60 tabs 07/09/18 [Rx Last Taken Unknown] prednisone 20 mg tablet 60 mg PO DAILY@0800 #9 tabs 07/09/18 [Rx Last Taken Unknown] Allergy/AdvReac Type Severity Reaction Status Date / Time No Known Allergies Allergy Verified 08/28/22 10:27 Social History Smoking Status: Never smoker ROS ROS ED ROS Narrative Constitutional: No fever, no chills. HEENT: No sore throat. No neck pain. No loss of vision. No rhinorrhea. Cardiovascular: No chest pain. No palpitations. No pedal edema. Respiratory: No cough, no shortness of breath. Abdominal: No abdominal pain. No nausea. No vomiting. Genitourinary: No dysuria. No hematuria. Musculoskeletal: No myalgias. No arthralgias. Positive low back pain. Low back spasms. Neurologic: No headaches. No dizziness. No lightheadedness. Skin: No rash. No change in color. Psychiatric: No depression. No anxiety. EXAM Physical Exam Narrative Exam Narrative: Afebrile. Vital signs noted. HEENT: Normocephalic. Atraumatic. PERRL, EOMI. Neck soft and supple. No point tenderness or step off. Cardiovascular: Regular rate and rhythm. No murmurs, rubs, or gallops appreciated. Respiratory: No tachypnea. Lungs clear to auscultation bilaterally. Gastrointestinal: Abdomen soft, nontender, with normoactive bowel sounds. No rebound or guarding. Neurological: Awake. Alert. Nonfocal, nonlateralizing. Skin: No rash. Normal color. No pallor. Musculoskeletal: No pedal edema. Full range of motion extremities. Diffuse tenderness to palpation low back, no step-off. Const Vital Signs: 08/28/22 10:28 Temperature 97.8 F Temperature Source Temporal MDM MDM MDM Narrative Medical decision making narrative: I reviewed the patient's prior ED visits. He had been admitted in the past for intractable back pain. He does have disc herniation at L3-L4. He was told that golfing is not a good activity for him with herniated disc as it requires a lot of bending and twisting of his low back. I have low concern for cauda equina syndrome. For analgesia he was administered morphine, orphenadrine, and Toradol. I will obtain imaging/CT imaging given that he also has lumbar canal stenosis and herniation. I do not feel that he requires an emergent MRI. Upon repeat examination, he has improved slightly, and is now lying on his left side instead of on his stomach. CT of the lumbar spine was obtained and reviewed. In review of the radiology report there is no evidence of critical stenosis, disc heights are maintained. No evidence of fracture. In discussion with the patient and his , he states he is unable to perform his activities of daily living and even transfer. He had to urinate in a bottle last night. He had increasing back spasms so he will be administered Valium 5 mg orally. He is willing to go to rehab as he can barely move. I do feel that he would need more of a PT/OT eval, and additionally I have no social media content specialist available to get him to rehab from the emergency department. Patient will be discussed with the hospitalist. I discussed the patient with Dr. Dawson disposition is assigned to observation. Patient is in stable condition. Radiography Diagnostic Testing: Clinical Impression(s) from Imaging Studies Lumbar Spine CT 08/28/22 10:42 IMPRESSION: Intact lumbar spine. Electronically Signed: Jj Pagan MD at 12:07 EDT , Discharge Plan Dx/Rx/DC Orders Clinical Impression: Intractable back pain, Chronic back pain greater than 3 months duration, Inability to perform activities of daily living, Back spasm Disposition Disposition: Acute Care Hospital [facility]
[2022-08-28] MEDS: diazePAM 5 MG Tablet PO (12:40)
--- NOTE | 2022-08-28 12:48 | HP.PCM.HOS_ITS ---
HPI - General General Date of Admission: 08/28/22 Date of Service: 08/28/22 Chief Complaint: Back pain HPI Narrative ANGELICA SANCHEZ, is a 32 M with history of low back pain secondary to slipped disc with previous epidural steroid injection who presented to the emergency department with significant back pain and spasms. Patient had apparently gone out to play golf he developed severe pain after 2 holes. Presented to the emergency department the day after. CT of the lumbar spine obtained came back unremarkable was however admitted for inpatient treatment for intractable pain. On further questioning patient denied any numbness or paresthesias denied any falls. COUNTS INCLUDE 234 BEDS AT THE [facility] Home Medications cyclobenzaprine 10 mg tablet 10 mg PO TID #60 tabs 07/09/18 [Rx Last Taken Unknown] ibuprofen 600 mg tablet 600 mg PO Q8 #60 tabs 07/09/18 [Rx Last Taken Unknown] prednisone 20 mg tablet 60 mg PO DAILY@0800 #9 tabs 07/09/18 [Rx Last Taken Unknown] Allergy/AdvReac Type Severity Reaction Status Date / Time No Known Allergies Allergy Verified 08/28/22 10:27 Family History no significant family his no significant family history Surgical History no surgical history no surgical history Social History Smoking Status: Never smoker ROS ROS Narrative GENERAL: denies fever, chills, night sweats, weight loss, anorexia HEENT: denies headache, sinus congestion, or drainage, dysphagia RESPIRATORY: denies cough, sputum production, shortness of breath, CARDIAC: denies chest pain, palpitations, orthopnea, PND GASTROINTESTINAL: denies abdominal pain, nausea, vomiting, melena, GENITOURINARY: denies dysuria, urgency, frequency, heamaturia EXTREMITY: denies swelling MUSCULOSKELETAL: Intractable back pain NEUROLOGIC: denies focal numbness, weakness, tingling HEMATOLOGIC: denies easy bruising and/or hemorrhage INTEGUMENT: denies rashes PSYCHIATRIC: denies suicidal or homicidal ideation Vital Signs Vital Signs Vital Signs: 08/28/22 10:28 08/28/22 12:32 08/28/22 12:27 Temperature 97.8 F 97.9 F Temperature Source Temporal Temporal Pulse Rate 82 Respiratory Rate 18 18 Blood Pressure 148/76 H Blood Pressure Mean 100 Pulse Ox 94 Oxygen Delivery Method Room Air Weight Weight: 98.4 kg Body Mass Index (BMI) 33.0 Results Radiology Impression Lumbar Spine CT 08/28/22 10:42 IMPRESSION: Intact lumbar spine. Electronically Signed: Jj Pagan MD at 12:07 EDT , Assessment & Plan Assessment/Plan (1) Intractable back pain: PLAN: Plan Patient is a 32-year-old gentleman with history of lumbar slipped disc presented with intractable back pain 1.Intractable back pain ? Patient has been admitted to regular nursing floor for symptom management. Lumbar CT obtained demonstrated intact lumbar spine. Patient managed with steroid anti-inflammatory with ketorolac, muscle relaxant and narcotics as needed for pain 6-10. Plan is to consult pain management if patient does not respond to above management 2. Class I obesity with BMI of 33.0 ? Weight loss advised 3. DVT prophylaxis ? SC Lovenox Time spent in the patient's overall evaluation,decision-making process, review of diagnostic data, adjustment of management, discussion with other providers, nursing nursing and ancillary staff involved in patient's care documentation, 55 Minutes Charges/Coding Visit Charges Inpatient E&M: 53914 Init Hosp L2
[2022-08-28 13:15] LABS: Absolute Lymphocyte Count 1.29 X10^3/uL (0.83-4.51); Absolute Neutrophil Count 6.4 X10^3/uL (2.0-7.7); Basophil# 0.03 X10^3/uL; Basophil% 0.4 % (0-1); Eosinophil# 0.03 X10^3/uL; Eosinophils% 0.4 % (0-5); Hematocrit 45.7 % (40-54); Hemoglobin 15.3 g/dL (13.0-16.5); Lymphocyte # 1.29 X10^3/ul (0.83-4.51); Lymphocyte % 15.8 % (19-41); Mean Corp Hgb Conc 33.5 g/dL (32-36); Mean Corpuscular Hgb 30.4 pg (27.0-32.0); Mean Corpuscular Volume 90.9 fL (80-94); Mean Platelet Vol. 10.5 fl (6.2-12.0); Monocyte# 0.36 X10^3/uL; Monocyte% 4.4 % (0-10); NRBC Flagged by Analyzer 0 % (0-5); Neutrophil # 6.44 X10^3/uL (2.7-7.7); Neutrophil % 78.6 % (47-70); Platelet Count 230 K/mm3 (150-450); RBC Distribution Width SD 40.3 fl (35.1-43.9); Red Blood Count 5.03 M/mm3 (4.6-6.2); White Blood Count 8.2 K/mm3 (4.4-11.0)
[2022-08-28 13:32] LABS: ALB/GLOB Ratio 1.1 RATIO (0.9-2.4); AST(SGOT) 18 U/L (15-37); Alanine Aminotransfer ALT/SGPT 41 U/L (16-61); Alkaline Phosphatase 55 U/L (45-117); Anion Gap 5 (5-15); BUN 16 mg/dL (7-18); Chloride 109 mmol/L (98-107); Creatinine, Serum 1.07 mg/dL (0.70-1.30); EST Glomerular Filtration Rate 86 mL/min (>60); Est Glom Filt Rate - Afr Amer 104 mL/min (>60); Estimated Creatinine Clearance 96.78 ml/min; Globulin 3.6 g/dL (2.2-4.2); Glucose 93 mg/dL (74-106); Magnesium 2.2 mg/dL (1.6-2.6); Potassium 4.9 mmol/L (3.5-5.1); Protein, Total 7.6 g/dL (6.4-8.2); Sodium Level 139 mmol/L (136-145)
[2022-08-28] MEDS: Lidocaine 5% Patch 1 PATCH TOPICAL (14:26)
[2022-08-28] MEDS: cycloBENZAPRine HCl 10 MG Tablet PO ×2 (14:26→21:37)
[2022-08-28] MEDS: Methylprednisolone Sod Succ 40 MG/ML VIAL IV ×2 (14:26→21:37)
[2022-08-28] MEDS: 0.9% Saline Lock 10 ML Syringe IV ×4 (14:26→21:37)
[2022-08-28] MEDS: Gabapentin 100 MG Capsule PO (16:32)
[2022-08-28] MEDS: Ketorolac 15 MG/ML Vial IV (16:37)
[2022-08-28] MEDS: HYDROmorphone 1 MG/ML Syringe IV (20:10)
[2022-08-28 23:49] LABS: Bacteria 0 SEEN /hpf (None Seen); Mucous, Urine 0 SEEN /hpf (<or=2+); Red Blood Cells-Urine 0 SEEN /hpf (0-5); Squamous Epithelial Cells - UA 0 SEEN /hpf (0-5); White Blood Cells 0 SEEN /hpf (0-5)
[2022-08-28 23:50] LABS: Color, Urine Yellow (Yellow); Glucose, Dipstick Normal (Normal); Ketone-Dipstick Negative (Negative); Leukocyte Esterase-Dipstick Negative /ul (Negative); Nitrite-Dipstick Negative (Negative); Occult Blood-Urine Negative /ul (Negative); Protein-Dipstick Negative (Negative); Urine Bilirubin Dipstick Negative (Negative); Urine Clarity Clear (Clear); Urine Urobilinogen Normal (Normal)
[2022-08-29 03:12] VITALS: BP 96/54; PULSE 64; RESP 16; TEMP 36.6; O2SAT 94
[2022-08-29] MEDS: cycloBENZAPRine HCl 10 MG Tablet PO ×2 (05:18→13:41)
[2022-08-29] MEDS: Methylprednisolone Sod Succ 40 MG/ML VIAL IV ×2 (05:18→13:41)
[2022-08-29 07:24] LABS: Absolute Lymphocyte Count 0.92 X10^3/uL (0.83-4.51); Absolute Neutrophil Count 10.8 X10^3/uL (2.0-7.7); Basophil# 0.01 X10^3/uL; Basophil% 0.1 % (0-1); Hematocrit 45.6 % (40-54); Hemoglobin 15.3 g/dL (13.0-16.5); Lymphocyte # 0.92 X10^3/ul (0.83-4.51); Lymphocyte % 7.7 % (19-41); Mean Corp Hgb Conc 33.6 g/dL (32-36); Mean Corpuscular Hgb 30.7 pg (27.0-32.0); Mean Corpuscular Volume 91.4 fL (80-94); Mean Platelet Vol. 11.1 fl (6.2-12.0); Monocyte# 0.16 X10^3/uL; Monocyte% 1.3 % (0-10); NRBC Flagged by Analyzer 0 % (0-5); Neutrophil % 90.5 % (47-70); Platelet Count 258 K/mm3 (150-450); RBC Distribution Width SD 40.2 fl (35.1-43.9); Red Blood Count 4.99 M/mm3 (4.6-6.2); White Blood Count 11.9 K/mm3 (4.4-11.0)
[2022-08-29] MEDS: Gabapentin 100 MG Capsule PO ×2 (07:50→11:47)
[2022-08-29] MEDS: Enoxaparin 40 MG/0.4 ML Syringe SC (07:50)
[2022-08-29] MEDS: Lidocaine 5% Patch 1 PATCH TOPICAL (07:50)
[2022-08-29 08:00] VITALS: BP 102/75; PULSE 56; RESP 18; TEMP 36.6; O2SAT 96
[2022-08-29 08:46] LABS: Anion Gap 8 (5-15); BUN 17 mg/dL (7-18); BUN/Creat Ratio 17.4 RATIO (10-20); Calcium,Total 9.1 mg/dL (8.5-10.1); Chloride 107 mmol/L (98-107); Creatinine, Serum 0.98 mg/dL (0.70-1.30); EST Glomerular Filtration Rate 95 mL/min (>60); Est Glom Filt Rate - Afr Amer 115 mL/min (>60); Estimated Creatinine Clearance 105.66 ml/min; Glucose 145 mg/dL (74-106); Potassium 5.2 mmol/L (3.5-5.1); Sodium Level 135 mmol/L (136-145)
--- NOTE | 2022-08-29 11:18 | DCINST_ITS ---
Discharge Instructions Diet Discharge Diet: No restrictions Activity Discharge Activity: Return to Normal Activity Dressing / Incision Call your doctor if you observe: Fever of 101 or Higher, Shortness of breath, Dizziness, Fainting spells, Swelling in the ankles, Chest pain and Increased palpitations (irregular heartbeat) Follow Up Care Test Results: Test results from this visit will be discussed in further detail at your follow- up appointment, if applicable. Discharge Plan Admission Admit Date/Time: 08/28/22 12:31 Attending Provider: Jim Harding Primary Care Provider: Radha Moran Consulting Providers: Apollo Dawson Instructions Additional Instructions / Restrictions: Follow-up with pain management at your discretion Discharge Orders/Prescriptions Prescriptions: New cyclobenzaprine 10 mg Tablet 10 mg PO TID 5 Days Qty: 15 0RF prednisone 20 mg tablet 40 mg PO DAILY Qty: 14 0RF Discontinued cyclobenzaprine 10 MG tablet 10 mg PO TID Qty: 60 0RF Rx Instructions: take 1 tab 3 times a day for the next 3-4 days and then you can take every 6 hours as needed for muscle spasm prednisone 20 MG tablet 60 mg PO DAILY@0800 Qty: 9 0RF ibuprofen 600 MG tablet 600 mg PO Q8 Qty: 60 0RF Referrals / Follow Up: Radha Moran MD [Primary Care Provider] - Within 1 Week Disposition Disposition (needs filled in before D/C Order can be placed): Home, Self Care
--- NOTE | 2022-08-29 11:26 | DS.PCM_ITS ---
Providers Date of Admission: 08/28/22 Primary Care Physician: Dr. Radha Moran MD Reason For Visit: INTRACTABLE BACK PAIN Diagnosis Discharge Diagnosis (1) Intractable back pain: Status: Acute Code(s): M54.9 - Dorsalgia, unspecified Medications at Discharge Home Medications cyclobenzaprine 10 mg tablet 10 mg PO TID 5 days #15 tabs 08/29/22 prednisone 20 mg tablet 40 mg PO DAILY #14 tabs 08/29/22 Hospital Course Operations None Procedures None Summary of Care Provided Minutes Spent on Discharge: 35 Hospital Course: Per HPI: ANGELICA SANCHEZ, is a 32 M with history of low back pain secondary to slipped disc with previous epidural steroid injection who presented to the emergency department with significant back pain and spasms.? Patient had apparently gone out to play golf he developed severe pain after 2 holes.? Presented to the emergency department the day after.? CT of the lumbar spine obtained came back unremarkable was however admitted for inpatient treatment for intractable pain.? On further questioning patient denied any numbness or paresthesias denied any falls. Hospital Course: 1. Intractable back pain secondary to muscle spasm in the setting of previous slipped disc?32-year-old male presented to the hospital with intractable back pain. He was golfing on Monday and then woke up stiff on Monday his pain progressed from there. He does not have any warning signs for cauda equina syndrome and his white blood cell count is just slightly elevated secondary to being placed on steroids while here in the hospital. He is feeling better today though it is not back to baseline and I discussed with him the plan for discharge and he expressed understanding of the risk benefits of going home and is okay with going home. We will plan for Flexeril and prednisone on discharge I also discussed with him that he can supplement with ibuprofen if needed for pain control but will not do narcotics. I do recommend that he follow-up with his PCP in 3 to 5 days and if necessary he has had injections in his back by pain management in the past, so if he feels it appropriate he can call and get an appointment as an outpatient. Physical Exam Narrative General: Alert, Oriented x3, Cooperative, No apparent distress HEENT: Atraumatic, PERRLA, EOMI, Normocephalic Oral: Moist Mucosa Neck: Supple, No JVD Lungs: Clear to auscultation, Normal air movement, No rhonchi, No wheeze, No rales Cardiovascular: Regular rate, Regular Rhythm, Normal S1, Normal S2, No murmurs Abdomen: Soft, Non Tender, Non-Distended, No Hepato-splenomegaly Extremities: No edema, Capillary Refill Less than 3 Seconds Skin: No rashes, No breakdown Musculoskeletal: No central spinal tenderness or paraspinal tenderness, he did have muscle spasm with straight leg raise but no shooting pain down his legs Neurological: Cranial nerves II-XII grossly intact, Motor Exam 5/5 strength throughout, Sensory exam intact to light touch and pain Psych/Mental Status: Normal Affect, Appropriate Weight / BMI Weight Weight: 210 lb 14.958 oz Body Mass Index (BMI) 31.9 ABG / Lab / Microbiology Data Result Diagrams: 08/29/22 06:50 08/29/22 06:50 Laboratory: Laboratory Results - last 24 hr 08/28/22 13:02: WBC 8.2, RBC 5.03, Hgb 15.3, Hct 45.7, MCV 90.9, MCH 30.4, MCHC 33.5, RDW Std Deviation 40.3, RDW Coeff of Radah 12.0, Plt Count 230, MPV 10.5, Im mature Gran % (Auto) 0.400, Neut % (Auto) 78.6 H, Lymph % (Auto) 15.8 L, Brooke % (Auto) 4.4, Eos % (Auto) 0.4, Baso % (Auto) 0.4, Absolute Neuts (auto) 6.4, Absolute Lymphs (auto) 1.29, Nucleated RBC % 0 08/28/22 13:02: Sodium 139, Potassium 4.9, Chloride 109 H, Carbon Dioxide 25.0, Anion Gap 5, BUN 16, Creatinine 1.07, Estim Creat Clear Calc 96.78, Est GFR (MDRD) Af Amer 104, Est GFR (MDRD) Non-Af 86, BUN/Creatinine Ratio 15.0, Glucose 93, Calcium 9.0, Magnesium 2.2, Total Bilirubin 0.50, AST 18, ALT 41, Alkaline Phosphatase 55, Total Protein 7.6, Albumin 4.0, Globulin 3.6, Albumin/Globulin Ratio 1.1 08/28/22 23:25: Urine Color Yellow, Urine Clarity Clear, Urine pH 7.0, Ur Spe cific [place] 1.010, Urine Protein Negative, Urine Glucose (UA) Normal, Urine Ketones Negative, Urine Occult Blood Negative, Urine Nitrite Negative, Urine Bilirubin Negative, Urine Urobilinogen Normal, Ur Leukocyte Esterase Negative, Urine RBC 0 SEEN, Urine WBC 0 SEEN, Ur Squamous Epith Cells 0 SEEN, Urine Bacteria 0 SEEN, Urine Mucus 0 SEEN 08/29/22 06:50: WBC 11.9 H, RBC 4.99, Hgb 15.3, Hct 45.6, MCV 91.4, MCH 30.7, MCHC 33.6, RDW Std Deviation 40.2, RDW Coeff of Radha 12.0, Plt Count 258, MPV 11.1, Immature Gran % (Auto) 0.400, Neut % (Auto) 90.5 H, Lymph % (Auto) 7.7 L, Brooke % (Auto) 1.3, Eos % (Auto) 0.0, Baso % (Auto) 0.1, Absolute Neuts (auto) 10.8 H, Absolute Lymphs (auto) 0.92, Nucleated RBC % 0 08/29/22 06:50: Sodium 135 L, Potassium 5.2 H, Chloride 107, Carbon Dioxide 20.0 L, Anion Gap 8, BUN 17, Creatinine 0.98, Estim Creat Clear Calc 105.66, Est GFR (MDRD) Af Amer 115, Est GFR (MDRD) Non-Af 95, BUN/Creatinine Ratio 17.4, Glucose 145 H, Calcium 9.1 Radiography Diagnostic Testing: Radiology Impression Lumbar Spine CT 08/28/22 10:42 IMPRESSION: Intact lumbar spine. Electronically Signed: Jj Pagan MD at 12:07 EDT , D/C Instructions Discharge Diet: No restrictions Call your doctor if you observe: Fever of 101 or Higher, Shortness of breath, Dizziness, Fainting spells, Swelling in the ankles, Chest pain and Increased palpitations (irregular heartbeat) Meaningful Use Info Meaningful Use Diagnoses (Choose all that apply): None applicable Discharge Plan Admission Admit Date/Time: 06/04/23 12:31 Attending Provider: Jim Harding Primary Care Provider: Radha Moran Consulting Providers: Apollo Dawson Instructions Additional Instructions / Restrictions: Follow-up with pain management at your discretion Discharge Orders/Prescriptions Prescriptions: New cyclobenzaprine 10 mg Tablet 10 mg PO TID 5 Days Qty: 15 0RF prednisone 20 mg tablet 40 mg PO DAILY Qty: 14 0RF Discontinued cyclobenzaprine 10 MG tablet 10 mg PO TID Qty: 60 0RF Rx Instructions: take 1 tab 3 times a day for the next 3-4 days and then you can take every 6 hours as needed for muscle spasm prednisone 20 MG tablet 60 mg PO DAILY@0800 Qty: 9 0RF ibuprofen 600 MG tablet 600 mg PO Q8 Qty: 60 0RF Referrals / Follow Up: Radha Moran MD [Primary Care Provider] - Within 1 Week Disposition Disposition (needs filled in before D/C Order can be placed): Home, Self Care Charges/Coding Visit Charges Inpatient E&M: 26782 Disch Hosp >30min
--- NOTE | 2022-08-29 11:39 | PHA.DC.MR ---
Pharmacy Service has performed discharge medication reconciliation for this patient. The patient's discharge medication list was reviewed for discrepancies and discrepancies were resolved. 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 Home Medications cyclobenzaprine 10 mg tablet 10 mg PO TID 5 days #15 tabs 08/29/22 prednisone 20 mg tablet 40 mg PO DAILY #14 tabs 08/29/22
[2022-08-29] MEDS: Ketorolac 15 MG/ML Vial IV (12:55)
[2022-08-29] MEDS: 0.9% Saline Lock 10 ML Syringe IV ×2 (12:55→13:42)
[2022-08-29 14:00] VITALS: BP 105/68; PULSE 60; RESP 18; TEMP 36.5; O2SAT 98
[2022-08-29 16:00] VITALS: BP 142/81; PULSE 101; RESP 18; TEMP 36.9; O2SAT 97
== END 2022-08-29 16:30 | disposition home or self-care (01) ==
LOC: ED 12:22 → MS3 12:54
PROVIDERS: Admitting Provider Internal Medicine; Emergency Provider Emergency Medicine; PCP Family Medicine; Visit Provider Family Medicine
DX: M48.061 Spinal stenosis, lumbar region without neurogenic claudication (principal); G89.29 Other chronic pain; M51.26 Other intervertebral disc displacement, lumbar region; Z79.899 Other long term (current) drug therapy; Z79.52 Long term (current) use of systemic steroids; E66.9 Obesity, unspecified; Z68.33 Body mass index [BMI] 33.0-33.9, adult
CPT/HCPCS: 36415; 72131; 80048; 80053; 81001; 83735; 85025; 94668; 96372; 96374; 96375; 96376; 99221; 99285; A4216; G0378